=== PATIENT | female | born 1990 | race Caucasian/White ===

== ENCOUNTER 2022-05-07 19:36 | Emergency (ER) | payer MEDICAID ==
[~2022-05-07] VITALS: Ht 160 cm; Wt 68.7 kg
[2022-05-07 19:47] VITALS: BP 119/77
--- NOTE | 2022-05-07 19:58 | NUR ---
OFFLOADED TO [facility]
--- NOTE | 2022-05-07 19:59 | NUR ---
31 YO F BIBA FROM HOME WITH C/C OF SYNCOPE X6HRS AGO. PT HIT RT SIDE OF HEAD, NO DEFORMITY, NO LAC. PT STATES SHE HAS NOT BEEN FEELING WELL. PT JUST ARRIVED FROM [facility]REPORTS SHE IS TAKING ANTIBIOTICS FOR CLAMYDIA. PT REPORTS 1/10 HEAD PAIN. PERRLA. 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 DENIES HX, RX AND ALLERGIES
[2022-05-07 21:35] LABS: BASOPHILS # (AUTO) 0.1 K/uL (0.00-0.22); BASOPHILS % (AUTO) 0.6 % (0.0-2.0); EOSINOPHILS % (AUTO) 0.1 % (0.0-4.0); HEMOGLOBIN 12.9 g/dL (12.0-16.0); LYMPHOCYTES % (AUTO) 13.2 % (20.5-51.1); MEAN CORPUSCULAR HEMOGLOBIN 29 pg (27-31); MEAN CORPUSCULAR HGB CONC 33 g/dL (33-37); MEAN CORPUSCULAR VOLUME 88.1 fL (80-94); MONOCYTES # (AUTO) 0.5 K/uL (0.8-1.0); MONOCYTES % (AUTO) 6.6 % (1.7-9.3); NEUTROPHILS # (AUTO) 6.3 K/uL (1.8-7.7); NEUTROPHILS % (AUTO) 79.5 % (42.2-75.2); PLATELET COUNT (AUTO) 247 K/uL (140-450); RED BLOOD CELL COUNT(AUTO) 4.43 MIL/uL (4.20-5.40); WHITE BLOOD COUNT (AUTO) 7.9 K/uL (4.8-10.8)
[2022-05-07 22:01] LABS: ALBUMIN 4.3 g/dL (3.4-5.0); ANION GAP 13.1 (8-16); ASPARTATE AMINOTRANSFERASE 28 U/L (15-37); CHLORIDE 100 mmol/L (98-107); CREATININE 0.7 mg/dL (0.6-1.3); GFR ARICAN-AMERICAN 126 mL/min (>90); GLUCOSE 95 mg/dL (74-106); LIPASE 48 U/L (73-393); POTASSIUM 4.1 mmol/L (3.5-5.1); SODIUM SERUM 139 mmol/L (136-145); TOTAL BILIRUBIN 0.6 mg/dL (0.0-1.0); UREA NITROGEN, BLOOD 12 mg/dL (7-18)
[2022-05-07] MEDS ORDERED: IBUP-2213 PO (22:37)
[2022-05-07 22:44] VITALS: BP 119/77
== END 2022-05-07 22:44 | disposition home or self-care (01) ==
LOC: MED 19:36
DX: S02.5XXA Fracture of tooth (traumatic), initial encounter for closed fracture (principal); R55 Syncope and collapse; R42 Dizziness and giddiness; R51.9 Headache, unspecified; Z79.899 Other long term (current) drug therapy; X58.XXXA Exposure to other specified factors, initial encounter; Y93.89 Activity, other specified; Y92.89 Other specified places as the place of occurrence of the external cause; Y99.8 Other external cause status
CPT/HCPCS: 36415; 80053; 81002; 81025; 83690; 84484; 85025; 93005; 99284